=== PATIENT | male | born 1955 | race Caucasian/White ===

== ENCOUNTER → 2017-06-24 | Outpatient (CLI) | payer OTHER ==
[~2017-06-24] MED LIST: ASPI325 PO; BENZ100A PO; CODACE60 PO; CODGUAEL PO; DIAZ5 PO; FISH1000 PO; Flomax0.4 MG PO; Flonase 0.05% N16 GM; Norco 5-325 Ta1 EACH PO; PANT20 PO; PROM25 PO; PROZAC PO; PSEU120ER PO; Percocet 5-3251 EACH PO; Prednisone20 MG PO; Prozac20 MG PO; VITAMIN D PO
[2017-06-25 12:17] LABS: Protein, Urine Quantitative 9.7 mg/dL (0.0-11.9); Uric Acid, Urine 68.7 mg/dL (7.5-49.5)
[2017-06-25 12:20] LABS: Microalbumin, Urine Quant. 12.6 mg/L (0.000-20.000)
[2017-06-25 13:01] LABS: Phosphorus, Urine 76.4 mg/dL (20.0-60.0)
== END ==
LOC: LAB SHORT 11:07 → OLS 11:07 → LAB SHORT 06-25 11:07
PROVIDERS: Internal Medicine Nephrology
DX: N18.2 Chronic kidney disease, stage 2 (mild) (principal); N25.81 Secondary hyperparathyroidism of renal origin; E55.9 Vitamin D deficiency, unspecified; R76.9 Abnormal immunological finding in serum, unspecified; R94.5 Abnormal results of liver function studies
CPT/HCPCS: 81050; 82043; 82131; 82340; 82507; 82570; 83945; 84105; 84133; 84156; 84300; 84560

== ENCOUNTER → 2018-01-18 | Outpatient (CLI) | payer OTHER | END | disposition home or self-care (01) | LOC: LAB UCHC 11:44 → LAB SHORT 11:44 | DX: J02.9 Acute pharyngitis, unspecified (principal) | CPT/HCPCS: 87070 ==

== ENCOUNTER 2018-07-04 06:05 | Day surgery (SDC) | payer OTHER ==
[~2018-07-04] VITALS: Ht 160 cm; Wt 83.9 kg
[2018-07-04] MEDS ORDERED: SERT100 PO (07:04)
[2018-07-04] MEDS ORDERED: ASPI81CH PO (07:04)
[2018-07-04] MEDS ORDERED: TOCO1000 PO (07:05)
[2018-07-04] MEDS ORDERED: ERGO400 PO (07:05)
[2018-07-04] MEDS ORDERED: ALBU90OI61 INH (07:05)
[2018-07-04] MEDS ORDERED: ASCO500 PO (07:05)
[2018-07-04] MEDS ORDERED: HEARTBURN RELI150 M1 PO (07:16)
--- NOTE | 2018-07-04 10:31 | NUR ---
07/04/18 Adam1 Kary Lieberman ATTEMPTED TO WEAN OFF O2 SATS DROPED TO 88%, PLACED BACK ON O2 MASK. SATS UP TO 99%. COUGH AND DEEP BREATHING
--- NOTE | 2018-07-04 11:18 | NUR ---
07/04/18 1118 Jim Ulloa S PATIENT UP TO CHAIR DRINKING APPLE JUICE. DENIES PAIN N/V AT THIS TIME. VSS
== END 2018-07-04 11:52 | disposition home or self-care (01) ==
LOC: ORSCSDS 06:05
PROVIDERS: Orthopaedic Surgery
PROC: 0RNJ4ZZ Release Right Shoulder Joint, Percutaneous Endoscopic Approach (ICD-10-PCS; principal; 2018-07-04 07:30)
PROC: 0LS14ZZ Reposition Right Shoulder Tendon, Percutaneous Endoscopic Approach (ICD-10-PCS; principal; 2018-07-04 07:30)
PROC: 0LQ14ZZ Repair Right Shoulder Tendon, Percutaneous Endoscopic Approach (ICD-10-PCS; principal; 2018-07-04 07:30)
DX: M75.111 Incomplete rotator cuff tear or rupture of right shoulder, not specified as traumatic (principal); M75.41 Impingement syndrome of right shoulder; M75.21 Bicipital tendinitis, right shoulder; J45.909 Unspecified asthma, uncomplicated; G47.33 Obstructive sleep apnea (adult) (pediatric); Z79.899 Other long term (current) drug therapy
CPT/HCPCS: C1713; J0171; J0690; J1100; J2250; J2405; J3010; J7120

== ENCOUNTER 2018-09-27 07:26 | Day surgery (SDC) | payer OTHER ==
[~2018-09-27] VITALS: Ht 154.9 cm; Wt 84.1 kg
[~2018-09-27 07:26] MED LIST changes: +ALBU90OI61 INH; +ASCO500 PO; +ASPI81CH PO; +ERGO400 PO; +HEARTBURN RELI150 M1 PO; +SERT100 PO; +TOCO1000 PO
--- NOTE | 2018-09-27 08:15 | NUR ---
STUDENT RN ASSISTING IN PRE PROCEDURE CARE. AGREE WITH HER CHARTING AND CARE.
--- NOTE | 2018-09-27 08:17 | NUR ---
PATIENT GAVE ME PERMISSION TO CARE FOR HIM TODAY 09/27/18. History, Chart, Medications and Allergies reviewed before start of procedure.Patient confirms NPO status and agrees with scheduled surgery. Patient states colon prep results clear.Lungs clear T/O to Auscultation.
--- NOTE | 2018-09-27 08:34 | NUR ---
09/27/18 0834 Janie Rivera History, Chart, Medications and Allergies reviewed before start of procedure. Patient confirms NPO status and agrees with scheduled surgery. PATIENT DETERMINED TO BE ASA APPROPRIATE FOR PROPOFOL SEDATION PRIOR TO START OF PROCEDURE BY DR. CRANE. 3-LEAD EKG REVIEWED WITH PHYSICIAN PRIOR TO START OF PROCEDURE. MONITOR INTACT WITH CONTINUOUS PULSE OXIMETRY AND INTERMITTENT BP.
--- NOTE | 2018-09-27 09:40 | NUR ---
Discharge instructions reviewed with patient. Patient verbalizes understanding. Copy given to patient to take home. Discharged via wheelchair to private car for ride home.
== END 2018-09-27 22:47 | disposition home or self-care (01) ==
LOC: ORSCMMR 07:26 → ORD 08:30 → ORSCMMR 22:47
PROVIDERS: Internal Medicine Gastroenterology
PROC: 0DBN8ZX Excision of Sigmoid Colon, Via Natural or Artificial Opening Endoscopic, Diagnostic (ICD-10-PCS; principal; 2018-09-27 08:30)
PROC: 0DBP8ZX Excision of Rectum, Via Natural or Artificial Opening Endoscopic, Diagnostic (ICD-10-PCS; principal; 2018-09-27 08:30)
PROC: 0DBM8ZX Excision of Descending Colon, Via Natural or Artificial Opening Endoscopic, Diagnostic (ICD-10-PCS; principal; 2018-09-27 08:30)
PROC: 0DBL8ZX Excision of Transverse Colon, Via Natural or Artificial Opening Endoscopic, Diagnostic (ICD-10-PCS; principal; 2018-09-27 08:30)
DX: Z12.11 Encounter for screening for malignant neoplasm of colon (principal); D12.3 Benign neoplasm of transverse colon; D12.4 Benign neoplasm of descending colon; K62.1 Rectal polyp; K63.5 Polyp of colon; K57.30 Diverticulosis of large intestine without perforation or abscess without bleeding; Z86.010 Personal history of colon polyps; G47.33 Obstructive sleep apnea (adult) (pediatric); F32.9 Major depressive disorder, single episode, unspecified; N40.0 Benign prostatic hyperplasia without lower urinary tract symptoms; Z79.899 Other long term (current) drug therapy
CPT/HCPCS: 88305; J2250; J2704; J3010; J7120